=== PATIENT | female | born 1985 | race Caucasian/White ===

== ENCOUNTER 2024-09-25 16:23 | Emergency (ER) | payer BC, MEDICAID, SELFPAY ==
--- NOTE | 2024-09-25 16:32 | ED_ITS ---
HPI - Dental/Oral General Chief complaint: Dental/Oral Stated complaint: abscess in gum Time Seen by Provider: 09/25/24 16:32 [facility] to [facility] accompanied by family with complaints of abscess in right lower tooth burst today and is giving increased pain. Patient has been having pain in this area for the last few days did call her dentist and scheduled an appointment for next week. Patient also reports taking ibuprofen with some relief of symptoms. Denies headache, dizziness, fever, chills, body aches. Related Data Allergies Allergy/AdvReac Type Severity Reaction Status Date / Time amoxicillin (From Augmentin) Allergy Unknown Unknown Verified 09/25/24 16:46 clavulanic acid (From Allergy Unknown Unknown Verified 09/25/24 16:46 Augmentin) doxycycline Allergy Unknown Unknown Verified 09/25/24 16:46 erythromycin base Allergy Unknown Unknown Verified 09/25/24 16:46 morphine Allergy Unknown Itching Verified 09/25/24 16:46 quetiapine Allergy Unknown Unknown Verified 09/25/24 16:46 tramadol Allergy Unknown Hives / Verified 09/25/24 16:46 Red Face Review of Systems Constitutional: Constitutional: Reports as per HPI, Denies chills, Denies fatigue, Denies fever(s) and Denies weakness Eyes: Eyes: Reports no additional eye complaints ENT: Reports as per HPI Comments: Right lower dental pain Cardiovascular: Cardiovascular: Reports no additional cardiovascular complaints Respiratory: Respiratory: Reports no additional respiratory complaints Gastrointestinal: Gastrointestinal: Reports no additional gastrointestinal complaints Genitourinary: Genitourinary: Reports no additional female genitourinary complaints Musculoskeletal: Musculoskeletal: Reports no additional musculoskeletal complaints Neurologic: Reports system reviewed and no additional complaints, except as documented Psychiatric: Psychiatric: Reports no additional psychiatric complaints Endocrine: Endocrine: Reports no additional endocrine complaints Hematologic/Lymphatic: Hematologic/Lymphatic: Reports no additional hematologic/lymphatic complaints Allergic/Immunologic: Allergic/Immunologic: Reports no additional allergic/immunologic complaints Exam Const: General: healthy appearing and no acute distress Nutritional Appearance: well nourished Orientation/consciousness: patient oriented x3 Limitations: no limitations HENMT: Head: normal to inspection Ears: external ears normal Face/Nose/Sinus: Normal external nose present Mouth: Yes Normal oral and palatal mucosa present, Yes lip normal and Yes moist mucous membranes Teeth and gingiva: abnormal tooth and associated gingiva (right second molar ) Throat: posterior oropharynx normal Neck: Neck: no lymphadenopathy Resp: Effort & Inspection: normal respiratory effort Auscultation: clear to auscultation bilaterally Cardio: Rate: regular rate Rhythm: regular rhythm Skin: General skin exam: normal color Rashes: no rashes Wounds: no wounds Neuro: General: patient oriented x3 Speech: normal speech Gait exam (Neuro): Normal gait present Psych: Mental Status: mental status grossly normal Affect: normal affect Attitude: cooperative Course Course Level of Care: [facility] Visit MDM - Dental/Oral MDM Narrative Medical decision making narrative: patient noted the Augmentin makes her nauseated and vomiting has taken plain amoxicillin and penicillin in the past without reaction Discharge instructions reviewed with patient, as well as provided in writing per nursing staff. The instructions also include specific and strict return/GO TO THE ER as well as f/u information. All questions have been answered, and the patient deny any further questions with discharge and discharge plan. Differential Diagnosis Differential diagnosis: Likely gingival abscess, dental caries, toothache and dental abscess Medical Records Attestation: I reviewed the patient's medical records. Discharge Plan Discharge Clinical Impression: Dental abscess Patient Disposition: Home Condition: Stable Instructions: Antibiotic Form, Dental Abscess (ED) Additional Instructions: Take antibiotic until it's gone. Brushing teeth at least twice daily with gentle flossing. Avoid temperature extremes---when you eat. Salt gargle to rinse your mouth after every meal You may apply ice to the face to reduce pain/swelling. For pain, you may take: Tylenol 650-1000mg by mouth every 4-6 hours. Do not exceed 4000mg in 24 hours. Advil (Ibuprofen) 600 mg by mouth every 6 hours. Do not exceed 2400mg in 24 hours. Also, recommend regular dental check up one-two times a year to prevent tooth decay and other periodontal disease. Follow-up with the dentist as soon as possible--see the list provided Patient Language: [place] Prescriptions: New penicillin V potassium 500 mg tablet 500 mg PO Q8H 10 Days Qty: 30 0RF Follow-up/Referrals: PHYSICIAN,[employer] SAW OPERATOR [Primary Care Provider] - Time of Disposition: 16:57
[2024-09-25 16:40] VITALS: BP 120/75; PULSE 78; RESP 20; TEMP 37; O2SAT 100
== END 2024-09-25 17:00 | disposition home or self-care (01) ==
PROVIDERS: Emergency Provider Nurse Practitioner Family
DX: K04.7 Periapical abscess without sinus (principal)
CPT/HCPCS: 99203; G0463